=== PATIENT | female | born 1990 | race Caucasian/White ===

== ENCOUNTER 2019-09-01 15:10 | Emergency (ER) | payer SELFPAY ==
[~2019-09-01] VITALS: Ht 172.7 cm; Wt 75.8 kg
[2019-09-01] MEDS ORDERED: Ciloxan5 ML TOP (16:36)
[2019-09-01] MEDS ORDERED: ALBU90OI INH (16:37)
== END 2019-09-01 17:00 | disposition home or self-care (01) ==
LOC: ER 15:10
DX: H18.823 Corneal disorder due to contact lens, bilateral (principal); J45.901 Unspecified asthma with (acute) exacerbation; F17.200 Nicotine dependence, unspecified, uncomplicated
CPT/HCPCS: 71046; 94640; 99283-25; J7030